=== PATIENT | female | born 1975 | race Caucasian/White ===

== ENCOUNTER 2023-06-23 11:49 | Outpatient (CLI) | payer OTHER, SELFPAY ==
--- NOTE | ~2023-06-23 | XR_ITS ---
EXAMINATION: XR chest 2V 06/23/2023 12:19 INDICATION: Cough. Residual shortness of breath. Covid infection. PROCEDURE: 2 view chest COMPARISON: No prior studies for comparison. FINDINGS: The lungs are clear. The cardiomediastinal silhouette is within normal limits. There are no pleural effusions. There is no pneumothorax suspected. IMPRESSION: 1: NO ACUTE CARDIOPULMONARY DISEASE. Reviewed, dictated and finalized at location L. 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
[2023-06-23 12:25] LABS: Hemoglobin 14.5 g/dL (12.0-15.0); Mean Corpuscular HGB Conc 34.5 g/dl (32-36); Mean Corpuscular Hemoglobin 30.3 pg (26-34); Mean Corpuscular Volume 87.9 fl (80-100); Mean Platelet Volume 9.5 fl (7.4-10.4); Platelet Count Result 400 k/mm3 (150-375); Red Blood Count 4.78 M/mm3 (4.2-5.4); Red Cell Distribution Width 12.7 % (11.5-14.5); White Blood Count 11.6 K/mm3 (4.5-10.0)
[2023-06-23 12:35] LABS: Alanine Aminotransferase 45 U/L (6-35); Albumin Level 4.7 g/dL (3.5-5.1); Alkaline Phosphatase 90 U/L (38-126); Anion Gap 13 mmol/L (8-16); Aspartate Amino Transferase 31 U/L (14-36); Bilirubin,Total 0.6 mg/dL (0.2-1.3); Blood Urea Nitrogen 10 mg/dL (7-17); Calcium 9.8 mg/dL (8.4-10.2); Carbon Dioxide 22 mmol/L (22-30); Chloride 106 mmol/L (98-107); Cholesterol 261 mg/dL (0-200); Estimated Glomerular Filt Rate > 60; Glucose 121 mg/dL (65-110); HDL Direct 47 mg/dL; Potassium 3.3 mmol/L (3.4-5.0); Sodium 141 mmol/L (137-145); Triglycerides 230 mg/dL (<150)
[2023-06-23 12:39] LABS: Rheumatoid Factor < 12.0 IU/ML (<12)
[2023-06-23 12:46] LABS: LDL Cholesterol Direct 143 mg/dL
[2023-06-23 12:54] LABS: Erythrocyte Sedimentation Rate 29 mm/hr (0-20)
[2023-06-23 13:13] LABS: Free T4 Free Thyroxine 0.72 ng/mL (0.78-2.19); Vitamin D 25 Hydroxy 16.2 ng/mL
[2023-06-23 13:42] LABS: Creatinine Urine 110.7 mg/dL
[2023-06-23 13:47] LABS: MALB Creatinine Ratio 72.4 mg/g (0-30); Microalbumin Urine Random 80.1 mg/L (0-16.7)
[2023-06-23 15:12] LABS: Add Urine Microscopic? YES; Appearance Urine Turbid (Clear); Bacteria Urine 2+ /hpf; Bilirubin Urine Negative (Negative); Blood Urine Negative (Negative); Color Urine Yellow (Yellow); Glucose Urine UA Negative (Negative); Ketones Urine Negative (Negative); Leukocyte Esterase Ur 2+ LEU/UL (NEGATIVE); Need Manual Microscopic Reviewed; Nitrate Urine Negative (Negative); Protein Urine Trace mg/dL (Negative); RBC Urine 21-50 /hpf (0-2); Specific Grav Ur 1.018 (1.001-1.035); Squamous Epithelial Cell Urine Few /hpf (Few); Urobilinogen Urine 0.2 mg/dL (<2.0); WBC Urine 21-50 /hpf (0-3)
== END 2023-06-23 11:50 | disposition home or self-care (01) ==
LOC: ANHLAB 11:50
PROVIDERS: PCP Emergency Medicine; Visit Provider Emergency Medicine
DX: I10 Essential (primary) hypertension (principal); Z00.00 Encounter for general adult medical examination without abnormal findings; R05.9 Cough, unspecified
CPT/HCPCS: 36415; 71046; 80053; 80061; 81001; 82043; 82306; 84439; 84443; 85027; 85652; 86038; 86430

== ENCOUNTER 2023-07-28 07:44 | Outpatient (CLI) | payer OTHER, SELFPAY ==
--- NOTE | ~2023-07-28 | US_ITS ---
US right upper quadrant DATE: 07/28/2023 08:19 INDICATION: Elevated liver enzymes TECHNIQUE: Real-time imaging and Doppler analysis COMPARISON: 12/06/2016 CT abdomen FINDINGS: The gallbladder is surgically absent. The common bile duct is mildly dilated at 7.9 mm, pos sibly due to cholecystectomy, not apparently significantly changed since 12/06/2016. No hepatic space-occupying mass lesion is evident. Normal hepatopedal portal venous flow direction. The pancreatic tail is obscured. The pancreas otherwise appears unremarkable. No pancreatic duct dila tation. IMPRESSION: Status post cholecystectomy, which may account for 7.9 mm common bile duct diameter The pancreatic tail is obscured by bowel gas; otherwise unremarkable examination Reviewed, dictated and finalized at Location A. Reviewed, dictated and finalized at location L. S SERVICE SUPERVISOR IMPRESSION: Status post cholecystectomy, which may account for 7.9 mm common bi le duct diameter The pancreatic tail is obscured by bowel gas; otherwise unremarkable examinatio n
== END 2023-07-28 07:45 | disposition home or self-care (01) ==
PROVIDERS: PCP Emergency Medicine; Visit Provider Emergency Medicine
DX: R74.8 Abnormal levels of other serum enzymes (principal); Z90.49 Acquired absence of other specified parts of digestive tract
CPT/HCPCS: 76705

== ENCOUNTER 2024-07-09 12:08 | Outpatient (CLI) | payer OTHER, SELFPAY ==
[2024-07-09 12:54] LABS: Hematocrit 40.5 % (37.0-47.0); Hemoglobin 13.5 g/dL (12.0-15.0); Mean Corpuscular HGB Conc 33.3 g/dl (32-36); Mean Platelet Volume 9.7 fl (7.4-10.4); Platelet Count Result 345 k/mm3 (150-375); Red Cell Distribution Width 12.4 % (11.5-14.5); White Blood Count 10.4 K/mm3 (4.5-10.0)
[2024-07-09 13:03] LABS: Hemoglobin A1C 6.2 % (<5.7)
[2024-07-09 13:11] LABS: Alanine Aminotransferase 29 U/L (6-35); Albumin Level 4.4 g/dL (3.5-5.1); Alkaline Phosphatase 70 U/L (38-126); Anion Gap 9 mmol/L (4-12); Aspartate Amino Transferase 26 U/L (14-36); Bilirubin,Total 0.4 mg/dL (0.2-1.3); Blood Urea Nitrogen 8 mg/dL (7-17); Carbon Dioxide 25 mmol/L (22-30); Chloride 106 mmol/L (98-107); Estimated Glomerular Filt Rate > 60; Glucose 134 mg/dL (65-110); Potassium 3.8 mmol/L (3.4-5.0); Sodium 140 mmol/L (137-145)
[2024-07-09 13:21] LABS: Creatinine Urine 212.2 mg/dL
[2024-07-09 13:26] LABS: Microalbumin Urine Random 27.5 mg/L (0-16.7)
[2024-07-09 13:28] LABS: Free T4 Free Thyroxine 0.62 ng/dL (0.78-2.19); Vitamin D 25 Hydroxy 33.5 ng/mL
== END 2024-07-09 12:09 | disposition home or self-care (01) ==
LOC: ANHLAB 12:11
PROVIDERS: PCP Emergency Medicine; Visit Provider Emergency Medicine
DX: E55.9 Vitamin D deficiency, unspecified (principal); F32.9 Major depressive disorder, single episode, unspecified; I10 Essential (primary) hypertension; E78.5 Hyperlipidemia, unspecified; Z00.00 Encounter for general adult medical examination without abnormal findings
CPT/HCPCS: 36415; 80053; 82043; 82306; 83036; 84439; 84443; 85027

== ENCOUNTER 2024-12-18 12:14 | Outpatient (CLI) | payer OTHER, SELFPAY ==
[2024-12-18 12:38] LABS: Hematocrit 41.5 % (37.0-47.0); Hemoglobin 13.8 g/dL (12.0-15.0); Mean Corpuscular HGB Conc 33.3 g/dl (32-36); Mean Corpuscular Hemoglobin 29.8 pg (26-34); Mean Corpuscular Volume 89.6 fl (80-100); Mean Platelet Volume 9.6 fl (7.4-10.4); Platelet Count Result 343 k/mm3 (150-375); Red Blood Count 4.63 M/mm3 (4.2-5.4); Red Cell Distribution Width 12.6 % (11.5-14.5); White Blood Count 10.4 K/mm3 (4.5-10.0)
== END 2024-12-18 12:15 | disposition home or self-care (01) ==
LOC: ANHLAB 12:17
PROVIDERS: PCP Emergency Medicine; Visit Provider Emergency Medicine
DX: D72.829 Elevated white blood cell count, unspecified (principal)
CPT/HCPCS: 36415; 85027

== ENCOUNTER 2025-02-20 11:50 | Outpatient (CLI) | payer OTHER, SELFPAY ==
--- OUTSIDE RECORDS SUMMARY | 2025-02-20 11:57 | XMS_ITS | Clinical Summary ---
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 Gender Identity Not on file Sexual Orientation Not on file Plan of Treatment Health Maintenance Due Date Last Done Comments Hepatitis C Virus (HCV) Screening 1977 TdaP Immunization 1977 Hepatitis B Immunization (1 of 3 - 19+ 3-dose series) 1996 Pap Smear 1998 Cervical Cancer Screening (CCS) 11/12/2007 HPV/Cotest 11/12/2007 Cologuard 2022 Colonoscopy 2022 Colorectal Cancer Screening 2022 Immunochemical Fecal Occult Blood 2022 SARS-COV-2 Immunization ( season) 2024 Influenza Immunization (#1) 02/25/202502/27, 03/28/2019, 03/10/2018, Additional history exists Respiratory Syncytial Virus (RSV) Immunization (Adult) (1 - 1-dose 75+ series) 2052 Human Papillomavirus (HPV) Immunization Aged Out No longer eligible based on patient's age to complete this topic Meningococcal Immunization (ACWY) Aged Out No longer eligible based on patient's age to complete this topic Pneumococcal Immunization Combined Aged Out No longer eligible based on patient's age to complete this topic Rotavirus Immunization Aged Out No lo nger eligible based on patient's age to complete this topic
--- OUTSIDE RECORDS SUMMARY | 2025-02-20 11:57 | XMS_ITS | Clinical Summary ---
Author Organization [facility] Address [address] [place] [address] Care Team Providers Care Castables Worker Name Role Phone Maykel Desai MD Primary Care Provider [phone] Medications ARIPiprazole (ABILIFY) 10 mg tablet Take 1 tablet (10 mg total) by mouth every morning 5 Active buPROPion XL (WELLBUTRIN XL) 300 mg 24 hr tablet Take 1 tablet (300 mg total) by mouth every morning 5 Active carvediloL (COREG) 12.5 mg tablet Take 1 tablet (12.5 mg total) by mouth 2 (two) times a day with meals Active hydrALAZINE (APRESOLINE) 10 mg tablet Take 1 tablet (10 mg total) by mouth 2 (two) times a day 5 Active losartan (COZAAR) 100 mg tablet Take 1 tablet (100 mg total) by mouth daily Active traZODone (DESYREL) 150 mg tablet Take 1 tablet (150 mg total) by mouth as needed for sleep or depression 5 Active venlafaxine XR (EFFEXOR-XR) 150 mg 24 hr capsule Take 1 capsule (150 mg total) by mouth 2 (two) times a day Active simvastatin (ZOCOR) 20 mg tablet Take 1 tablet (20 mg total) by mouth nightly Active metFORMIN XR (GLUCOPHAGE XR) 500 mg 24 hr tablet Take 1 tablet (500 mg total) by mouth daily with breakfast 5 Active Active Problems Problem Noted Date Diagnosed Date Paroxysmal supraventricular tachycardia 02/02/20 25 Assessment & Plan (02/01/2025 12:43 PM CDT): Patient notes rare episodes of SVT which are well tolerated. Hypertension 02/01/2025 Assessment & Plan (02/01/2025 12:43 PM CDT): The patient's blood pressure is well-controlled on carvedilol 12.5 mg p.o. b.i.d., losartan 100 mg daily and hydralazine 10 mg p.o. b.i.d.. I have made no changes with her medications. Orders: Ambulatory referral to Cardiology ECG 12 lead EKG 12 lead office performed Chronic chest pain 02/01/2025 Assessment & Plan (02/01/2025 12:43 PM CDT): The patient notes chronic chest pain for years. She reports having a normal heart catheterization 8 months ago. These records are currently pending. Encounters Date Type Department Care Team Description 02/01/2025 12:00 PM CDT Office Visit [facility] Cardiology [address] [place] [address] [address] Maria De Jesus Teran MD Paroxysmal supraventricular tachycardia (Primary Dx); Hypertension, unspecified type; Chronic chest pain; Chronic shortness of breath from Last 3 Months Medical History Medical History Date Comments Hypertension Family History Medical History Relation Name Comments Heart attack Father Heart disease Father Hyperlipidemia Father Hypertension Father Stroke Father Heart disease Mother Hyperlipidemia Mother Hypertension Mother Stroke Mother Relation Name Status Comments Father Alive Mother Alive Social History Tobacco Use Types Packs/Day Years Used Date Smoking Tobacco: Never Smokeless Tobacco: Never Tobacco Cessation:Counseling Given: Not Answered Comments Unknown Sex and Gender Information Value Date Recorded Sex Assigned at Not on file 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 Gender Identity Not on file Sexual Orientation Not on file Obstetrics History Last Filed Vital Signs Vital Sign Reading Time Taken Comments Blood Pressure 120/78 02/01/2025 11:44 AM CDT Pulse 78 02/01/2025 11:44 AM CDT Temperature - - Respiratory Rate 18 02/01/2025 11:44 AM CDT Oxygen Saturation 98% 02/01/2025 11:44 AM CDT Inhaled Oxygen Concentration - - Weight 93.9 kg (207 lb 1.6 oz) 02/01/2025 11:44 AM CDT Height 170.2 cm (5' 7) 02/01/2025 11:44 AM CDT Body Mass Index 32.44 02/01/2025 11:44 AM CDT Plan of Treatment Health Maintenance Due Date Last Done Comments Breast Cancer Screening-Mammogram 1977 Cervical Cancer Screening 1977 Colon Cancer Screening-Colonoscopy 1977 Depression Screening 1977 Hepatitis C Screening 1977 DTaP/Tdap/Td Vaccine (1 - Tdap) 1988 Regular Well Visit/Exam 18-64 11/12/1995 Covid-19 Vaccine ( season) 2024 01/19/2021, 12/29/2020 Influenza Vaccine (#1) 2025 , 03/22/2023, 03/29/2022, Additional history exists Hepatitis B Screening Completed 08/02/2023 Pneumococcal vaccine <65 Aged Out No longer eligible based on patient's age to complete this topic Procedures Procedure Name Priority Date/Time Associated Diagnosis Comments MA ECG ROUTINE ECG W/LEAST 12 LDS W/I&R Routine 02/01/2025 11:52 AM CDT Hypertension, unspecified type ECG 12-LEAD Routine 02/01/2025 11:48 AM CDT Hypertension, unspecified type from Last 3 Months Results * MA ECG ROUTINE ECG W/LEAST 12 LDS W/I&R (02/01/2025 11:52 AM CDT) Narrative Maria De Jesus Teran MD - 02/01/2025 11:52 AM CDT Maria De Jesus Teran MD 02/01/2025 12:43 PM EKG 12 lead office performed Date/Time: 02/01/2025 11:52 AM Performed by: Karon Lentz MA Authorized by: Maria De Jesus Teran MD Procedure Type: Global Rhythm: sinus rhythm Rate: normal QRS axis: Normal Conduction: Normal ST Segment: Normal T Wave: Normal Other Findings: No other findings Clinical impression: normal ECG us Maria De Jesus Teran MD ECG ORDERABLES Final Result * ECG 12 lead (02/01/2025 11:48 AM CDT) Maria De Jesus Teran MD ECG ORDERABLES Final Result from Last 3 Months Insurance [facility] Care Teams Castables Worker Relationship Specialty Start Date End Date Maykel Desai MD [address] [place] [phone] PCP - General Emergency Medicine 12/14/24
--- OUTSIDE RECORDS SUMMARY | 2025-02-20 11:57 | XMS_ITS | Clinical Summary ---
Author Organization [facility] [id number] [facility] Address [address] [place] [address] Care Team Providers Care Profiling Machine Set Up Operator Tool Name Role Phone Unavailable Primary Care Provider Unavailabl e Social History Tobacco Use Types Packs/Day Years Used Date Smoking Tobacco: Never Assessed Comments Unknown Sex and Gender Information Value Date Recorded Sex Assigned at Not on file Legal Sex Female 12:38 PM CDT Gender Identity Not on file Sexual Orientation Not on file Plan of Treatment Upcoming Encounters Date Type Department Care Team (Late st Contact Info) Description 02/21/2025 1:00 PM CDT Procedure visit [facility] Audiology - [id number] [facility] [address] [facility] [place] [address] Irene Phillips AU.D [address] [facility] [place] [address] Health Maintenance Due Date Last Done Comments DTAP/TDAP/TD VACCINES (1 - Tdap) 1996 HEPATITIS B VACCINES (1 of 3 - 19+ 3-dose series) 10/25 HPV/Cotest (21-29) 1998 CERVICAL CANCER SCREENING 11/12/2007 HPV/Cotest (30-65) 11/12/2007 PAP SMEAR 11/12/2007 BREAST CANCER SCREENING 2017 COLORECTAL SCREENING 2022 Colorectal Cancer Screening 2022 FIT-DNA Q 3 years 2022 FIT/FOBT Q 1 year 2022 Flex Sig/CT Colonography Q 5 years 2022 INFLUENZA VACCINE (#1) [address] [place] [address] MEDICAID
[2025-02-20 12:24] LABS: Hematocrit 39.0 % (37.0-47.0); Hemoglobin 13.0 g/dL (12.0-15.0); Mean Corpuscular HGB Conc 33.3 g/dl (32-36); Mean Corpuscular Hemoglobin 30.0 pg (26-34); Mean Corpuscular Volume 90.1 fl (80-100); Platelet Count Result 324 k/mm3 (150-375); Red Blood Count 4.33 M/mm3 (4.2-5.4); White Blood Count 10.2 K/mm3 (4.5-10.0)
== END 2025-02-20 11:51 | disposition home or self-care (01) ==
LOC: ANHLAB 11:52
PROVIDERS: PCP Emergency Medicine; Visit Provider Emergency Medicine
DX: D72.829 Elevated white blood cell count, unspecified (principal)
CPT/HCPCS: 36415; 85027